=== PATIENT | female | born 1970 | race Caucasian/White ===

== ENCOUNTER 2017-04-16 17:54 | Emergency (ER) | payer SELFPAY ==
[2017-04-16] MEDS ORDERED: TYLENOL PO ONE (19:54)
[2017-04-16] MEDS ORDERED: TYLENOL ONE (19:58)
[2017-04-16 20:22] LABS: Basophils % (Auto) 0.2 % (0.0-1.8); Eosinophils % (Auto) 0.1 % (0.0-4.3); Hematocrit 40.7 % (30.3-42.9); Hemoglobin 13.3 gm/dl (10.1-14.3); Mean Corpuscular HGB Conc 33 % (30-34); Mean Corpuscular Hemoglobin 27 pg (28-32); Mean Corpuscular Volume 83 fl (79-97); Platelet Count 259 K/mm3 (140-440); Red Blood Count 4.88 M/mm3 (3.65-5.03); Red Cell Distribution Width 13.9 % (13.2-15.2); White Blood Count 17.1 K/mm3 (4.5-11.0)
[2017-04-16 20:41] LABS: Anion Gap 18 mmol/L; Blood Urea Nitrogen 13 mg/dL (7-17); Calcium 9.1 mg/dL (8.4-10.2); Carbon Dioxide 26 mmol/L (22-30); Chloride 96.3 mmol/L (98-107); Glucose 118 mg/dL (65-100); Potassium 3.7 mmol/L (3.6-5.0); Sodium 137 mmol/L (137-145)
--- NOTE | 2017-04-16 20:45 | Cat Scan Report ---
FINAL REPORT EXAM: CT HEAD/BRAIN WO CON HISTORY: HEADACHE TECHNIQUE: CT head without contrast PRIORS: None. FINDINGS: No acute intra-axial or extra-axial hemorrhage is identified. There is no evidence of midline shift or mass effect. The ventricles and sulci are within normal limits. Galvan-white matter differentiation is intact. No acute parenchymal abnormalities seen. Hyperostotic changes of the frontal bone noted. Visualized portions of the mastoids and paranasal sinuses are unremarkable. IMPRESSION: Hyperostotic changes of frontal bone No acute intracranial findings
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
[2017-04-17] MEDS ORDERED: NACL 0.9% 1000 ML 1,000 ML IV ONE (02:03)
[2017-04-17] MEDS ORDERED: ZOFRAN IV ONE (02:03)
[2017-04-17] MEDS ORDERED: MORPHINE IV ONE (02:05)
[2017-04-17] MEDS ORDERED: TORADOL IV ONE (02:05)
[2017-04-17] MEDS ORDERED: ROCEPHIN/NS 1 GM/50 ML 1 GM/50 ML BAG IV ONE (02:27)
[2017-04-17 03:07] LABS: Alanine Aminotransferase 45 units/L (7-56); Albumin/Globulin Ratio 0.8 %; Alkaline Phosphatase 95 units/L (35-129); Total Protein 9.1 g/dL (6.3-8.2)
[2017-04-17 03:15] LABS: Bilirubin,Direct < 0.2 mg/dL (0-0.2); Bilirubin,Indirect 0.6 mg/dL
[2017-04-17 03:39] LABS: Bilirubin,Urine NEG (Negative); Blood,Urine SM (Negative); Ketones,Urine 20 mg/dL (Negative); Leukocyte Esterase,Urine NEG (Negative); Mucus,Urine FEW /HPF; Nitrite,Urine NEG (Negative); Urobilinogen,Urine < 2.0 mg/dL (<2.0)
--- NOTE | 2017-04-17 04:45 | XRay Report ---
FINAL REPORT EXAM: XR CHEST ROUTINE 2V HISTORY: fever TECHNIQUE: PA and lateral chest radiographs PRIORS: None. FINDINGS: No mediastinal shift. Cardiac silhouette is not enlarged. Retrocardiac left lower lung opacity with air bronchograms. No pneumothorax or effusion. IMPRESSION: Retrocardiac left lower lung airspace disease. PA and lateral chest radiographic follow-up to resolution is recommended.
--- NOTE | 2017-04-17 06:45 | Cat Scan Report ---
FINAL REPORT EXAM: CT CHEST WO CON HISTORY: FEVER COUGH ABN CHEST X-RAY TECHNIQUE: CT imaging obtained through the chest without contrast. Transaxial, Coronal and sagittal reformats are provided. PRIORS: 04/17/2017 FINDINGS: Mediastinum is unremarkable. Thoracic aorta is normal in course and caliber. Fine pulmonary parenchymal detail is obscured by respiratory motion. Bibasilar atelectasis/scarring. No pneumothorax, effusion or focal airspace disease. The central airways are patent. No bronchiectasis. Please see CT abdomen pelvis of the same date. The superficial soft tissues are unremarkable. No acute bony abnormality or worrisome osseous lesions identified. The manubrium is partially obscured by motion artifact. No overlying soft tissue swelling/injury to suggest fracture. IMPRESSION: No acute pulmonary findings. Atelectasis/scarring accounts for chest radiographic abnormality. Please see CT abdomen and pelvis of the same date.
--- NOTE | 2017-04-17 06:49 | Cat Scan Report ---
FINAL REPORT EXAM: CT ABDOMEN PELVIS WO CON HISTORY: positive cva tenderness and perumbilical tender TECHNIQUE: CT images obtained through the Abdomen and Pelvis without contrast. Transaxial,coronal and sagittal reformats are provided. PRIORS: None. FINDINGS: Imaged intrathoracic contents are unremarkable. Kidneys are normal in size, axis and position. No nephrolithiasis. No stones in the urinary bladder. No hydroureteronephrosis. There is left perinephric and proximal left periureteral stranding. Diffuse hepatic attenuation with focal sparing about the gallbladder fossa. The liver, gallbladder, pancreas, spleen, and adrenal glands otherwise demonstrate an unremarkable noncontrast appearance. Hollow enteric organs are normal in course and caliber. Appendix is normal. No intra-abdominal free air/fluid or lymphadenopathy. Aorta is normal in course and caliber. Anteverted uterus with sub serosal calcified fibroid. No significant free fluid in the pelvis. Small fat containing umbilical hernia measures up to 2.5 cm transversely at the neck. Superficial soft tissues are otherwise unremarkable. No acute or aggressive appearing skeletal findings. IMPRESSION: Left perinephric and proximal periureteral stranding. No hydroureteronephrosis or nephrolithiasis. Findings may be due to infection (favored) versus recently passed stone. Hepatic steatosis. Small fat containing umbilical hernia.
[2017-04-17 06:57] VITALS: BP 165/78
[2017-04-17] MEDS ORDERED: PERCOCET 5/325 PO ONE (08:57)
[2017-04-17] MEDS ORDERED: ZOFRAN ODT PO ONE (08:57)
== END 2017-04-17 10:26 | disposition home or self-care (01) ==
LOC: ED 17:54
DX: N12 Tubulo-interstitial nephritis, not specified as acute or chronic (principal); K76.0 Fatty (change of) liver, not elsewhere classified; R51 Headache; R80.9 Proteinuria, unspecified; D72.829 Elevated white blood cell count, unspecified; K42.9 Umbilical hernia without obstruction or gangrene
CPT/HCPCS: 36415; 70450; 71020; 71250; 74176; 80048; 80074; 81001; 81025; 85025; 86140; 87040; 87086; 96365; 96375; 99285; J0696; J1885; J2270; J2405; J7030; Q0162